=== PATIENT | female | born 1985 | race Caucasian/White ===

== ENCOUNTER 2017-02-26 13:03 | Inpatient (IN) | payer BC ==
[~2017-02-26 13:03] MED LIST: Bupivacaine/Epinephrine 0.25% 30 ML VIAL ONE
--- NOTE | 2017-02-26 13:32 | PDOC.LDHP ---
Labor and Delivery H&P Chief complaint: contractions HPI: 31 y/o at 38w5d, patient of Dr. Alcala, presents with ctx. Denies VB, LOF, or decreased FM. ROS neg for HEENT, CV, pulm, GI, , neuro, psych, skin, musculoskeletal, or constitutional symptoms other than mentioned above. OB History Details: 1 prior term in 2014 Current complications: none Past Medical History: None Current medications: pre- vitamins Previous surgical history: none Allergies/Adverse Reactions: Allergies Allergy/AdvReac Type Severity Reaction Status Date / Time ibuprofen [From Advil] Allergy Mild Hives Verified 02/26/17 13:38 Social history: none - Physical Exam Vital signs reviewed and normal: yes General: NAD, resting Lungs: nonlabored breathing Abdomen: gravid Extremeties: no edema FHT: category 1 (140s, mod variability, + accels, no decels) - OB Labs Blood type: A RH: positive Antibody Screen: negative HIV: negative RPR: negative HEPSAg: negative 1 hour GCT: negative GBS: negative Rubella: immune - Assessment L&D Assessment: term patient in labor - Plan Plan: admit to L&D, labor augmentation if indicated, informed consent obtained, anesthesia consult for pain management (if desired)
[2017-02-26 13:39] VITALS: BMI 21.9
[2017-02-26] MEDS ORDERED: Acetaminophen 500 MG TAB PO PRN (13:51)
[2017-02-26] MEDS ORDERED: Diphenoxylate HCl/Atropine Tablet PO PRN ×2 (13:51)
[2017-02-26] MEDS ORDERED: Misoprostol 200 MCG TAB PR PRN (13:51)
[2017-02-26] MEDS ORDERED: HYDROcodone/Acetaminophen 5/325 mg Tablet PO PRN ×5 (13:51→18:35)
[2017-02-26] MEDS ORDERED: Ondansetron HCl/PF 4 MG/2 ML Vial IVP PRN ×3 (13:51→17:24)
[2017-02-26] MEDS ORDERED: Promethazine HCl 25 MG/ML VIAL IM PRN ×4 (13:51→18:35)
[2017-02-26] MEDS ORDERED: LR / Pitocin 40 units/1000 ml 1,000 ML IV PRN (13:51)
[2017-02-26] MEDS ORDERED: Lidocaine 1% (PF) 30 ML VIAL SC PRN (13:51)
[2017-02-26] MEDS ORDERED: Carboprost 250 MCG/ML AMP IM PRN (13:51)
[2017-02-26] MEDS ORDERED: LR 500 ML/Oxytocin 10 units 500 ML IV SCH (14:00)
[2017-02-26] MEDS: Lactated Ringer's 1,000 ML IV SCH ×2 (14:32→16:12)
[2017-02-26] MEDS ORDERED: Fentanyl 4 mcg/Marc 0.1% Cadd 100 ML ONE (14:54)
[2017-02-26 15:29] LABS: Hematocrit 34.8 % (36.0-47.0); Mean Platelet Volume 9.2 fL (7.4-10.4); Red Blood Cell (RBC) Count 3.58 mill/uL (4.20-5.40); White Blood Cell (WBC) Count 8.7 thou/uL (4.8-10.8)
[2017-02-26] MEDS ORDERED: Naloxone HCl 0.4 mg/ml Vial IVP PRN ×2 (16:03)
[2017-02-26] MEDS ORDERED: diphenhydrAMINE 50 MG/ML VIAL IVP PRN (16:03)
[2017-02-26] MEDS ORDERED: ePHEDrine/0.9% NaCl/PF SYRINGE 50 mg/10 ml SLOW IVP PRN (16:03)
[2017-02-26] MEDS ORDERED: Acetaminophen 325 MG TAB PO PRN (16:03)
[2017-02-26] MEDS ORDERED: Lactated Ringer's 500 ML IV PRN (16:03)
[2017-02-26] MEDS ORDERED: Eucerin (Mineral Oil/Petrolatum,White) 30 gm Jar TOP PRN (16:03)
[2017-02-26] MEDS ORDERED: Fentanyl 4mcg/Marcaine 0.1% Cassette 100 ML EPIDURAL SCH (16:15)
[2017-02-26] MEDS ORDERED: Communication Order-Pharmacy FS SCH (16:15)
[2017-02-26] MEDS ORDERED: Benzocaine/Menthol 20-0.5% 60 ML CAN TOP PRN (17:24)
[2017-02-26] MEDS ORDERED: Lanolin Ointment 7 GM TUBE TOP PRN (17:24)
[2017-02-26] MEDS ORDERED: Milk Of Magnesia 30 ML UDCUP PO PRN (17:24)
[2017-02-26] MEDS ORDERED: Preparation H Ointment 28 GM TUBE PR PRN (17:24)
[2017-02-26] MEDS ORDERED: Zolpidem Tartrate 5 MG TAB PO PRN ×2 (17:24→18:36)
[2017-02-26] MEDS ORDERED: Bisacodyl 10 MG SUPP PR PRN (17:24)
[2017-02-26] MEDS ORDERED: diphenhydrAMINE 25 MG CAP PO PRN (17:24)
--- NOTE | 2017-02-26 17:29 | PDOC.LDPN ---
Labor & Delivery Progress Note - Subjective Subjective: comfortable - Objective Vital signs reviewed and normal: yes General: NAD, resting Uterine fundus: non tender Dilation: 8 Effacement: 100% Station: 1+ FHT: category 1 Antoine contractions every: 3 AROM: clear fluid Plan: continue plan of care -: Anticipate
--- NOTE | 2017-02-26 17:31 | PDOC.OPDEL ---
OB Operative/Delivery Note Delivery Dr/Surgeon: Maribel Willard MD Pre-Delivery Diagnosis: active labor Procedure/Post Delivery Dx: spontaneous vaginal delivery Weeks gestation: 38 Anesthesia: epidural - Findings A Sex: female ("Brenley") - Additional Findings/Plan Placenta delivered: spontaneous Repaired Obstetrical Laceration: none Estimated blood loss: 250 Compilations/Other Findings: Extra digit on hands bilaterally Post delivery plan: routine recovery
[2017-02-26] MEDS ORDERED: LR / Pitocin 40 units/1000 ml 1,000 ML IV SCH (18:30)
[2017-02-26] MEDS ORDERED: Misoprostol 200 MCG TAB VAG SCH (18:30)
[2017-02-26] MEDS ORDERED: Measles/Mumps/Rubella 10 MCG/0.5 ML VIAL SC ONE (21:00)
[2017-02-26] MEDS ORDERED: Varicella virus, LIVE 0.5 ML VIAL SC ONE (21:00)
[2017-02-26] MEDS ORDERED: Adacel (T-DAP) 0.5 ML VIAL IM ONE (21:00)
[2017-02-26] MEDS: HYDROcodone/Acetaminophen 5/325 mg Tablet PO PRN (23:28)
[2017-02-26] MEDS: Docusate (Surfak) 240 MG CAP PO SCH (23:30)
[2017-02-27] MEDS: HYDROcodone/Acetaminophen 5/325 mg Tablet PO PRN ×2 (06:22→11:35)
[2017-02-27] MEDS: Ferrous Sulfate 325 MG TAB PO SCH ×2 (08:38→18:05)
[2017-02-27] MEDS ORDERED: Prenatal Vitamin 1 TAB PO SCH (09:00)
[2017-02-27] MEDS: Docusate (Surfak) 240 MG CAP PO SCH (09:49)
--- NOTE | 2017-02-27 17:09 | PDOC.PP ---
Post Progress Note Post Day #: 1 Subjective: doing well, desires DC home today PO intake tolerated: yes Flatus: yes Ambulation: yes Vital Signs (12 hours) Temp Pulse Resp BP 02/27/17 16:00 97.7 F 58 L 20 02/27/17 12:00 97.7 F 58 L 20 02/27/17 08:00 97.7 F 58 L 20 02/27/17 07:33 97.7 F 58 L 20 111/71 Weight Weight 140 lb - Physical Examination General: NAD Respiratory: non-labored breathing Abdominal: no distention Fundus firm & at: below umb Extremities: negative homans (B) Skin: no rash Psychiatric: A&Ox3, normal affect Result Diagrams: 02/26/17 14:31 Additional Labs: Post Labs Hep Bs Antigen Non-Reactive S/CO (NonReactive) 02/26/17 14:30 (1) Vaginal delivery Code(s): O80 - ENCOUNTER FOR FULL-TERM UNCOMPLICATED DELIVERY Status: Acute - Assessment/Plan PPD 1, doing well, DC home when baby DC.
[2017-02-27 17:18] VITALS: BP 111/69; TEMP 98
== END 2017-02-27 19:25 | disposition home or self-care (01) | DRG 775 ==
LOC: L&D/OP 13:03 → L&D 14:26 → 3SE 20:25
PROVIDERS: ADMIT Obstetrics & Gynecology; ATTEND Obstetrics & Gynecology
PROC: 10E0XZZ Delivery of Products of Conception, External Approach (ICD-10-PCS; principal; 2017-02-26)
DX: O80 Encounter for full-term uncomplicated delivery (principal); Z37.0 Single live birth; Z3A.38 38 weeks gestation of pregnancy
CPT/HCPCS: 36415; 85027; 86780; 87340; J2001; J7120

== ENCOUNTER 2018-06-25 08:39 | Outpatient (CLI) | payer OTHER ==
--- NOTE | 2018-06-25 09:59 | CT ---
Exam: Abdomen and pelvic CT scan with IV contrast: HISTORY: Lower abdominal pain FINDINGS: The lung bases are clear. The visualized liver, gallbladder, pancreas, spleen, and adrenal glands are unremarkable. No renal calculus or obstruction. No solid or cystic renal mass. No evidence for la rge or small bowel obstruction. No CT evidence for acute appendicitis. Several areas of abnormal low- attenuation change within the uterus possibly intrauterine fibroids. In several of the opacified small bowel loops of there are some circumscribed serpentiginous shaped s omewhat linear opacities which have a nonspecific appearance. I think this should be very unlikely to represent a neoplastic process. They could represent swallowed foreign bodies IMPRESSION: Altered attenuation within the uterus, nonspecific possibly uterine fibroids, consider follow-up pelv ic ultrasound. Some linear circumscribed abnormal filling defects within at least 2 loops of unopacified small bowel , possibilities include that of foreign bodies. Consideration for follow-up capsule enterography is s uggested with GI consultation.
[2018-06-25] MEDS ORDERED: Iopamidol 370 76% 100 ML VIAL ONE (17:18)
== END 2018-06-25 08:40 | disposition home or self-care (01) ==
LOC: CT 08:39
PROVIDERS: ATTEND Physician Assistant
DX: R10.13 Epigastric pain (principal); R10.30 Lower abdominal pain, unspecified; R93.89 Abnormal findings on diagnostic imaging of other specified body structures
CPT/HCPCS: 74177; Q9967

== ENCOUNTER 2018-07-10 13:02 | Outpatient (CLI) | payer OTHER ==
--- NOTE | 2018-07-10 16:15 | MRI ---
MRI Abdomen W WO Con History: [R 93.[address] R10.13 epigastric pain. K59 Constipation] Comparison: CT abdomen and pelvis with contrast June 25, 2018 Findings: No abnormal filling defect is seen within the lumen of the proximal small bowel as the prio r CT examination had seen. No hydronephrosis. Visualized portion of liver parenchyma is normal. No abnormal small bowel or large bowel enhancement. No fistula. No abnormal mucosal thickening. No submucosal edema. Gallbladder is normal. No intrahepa tic or extrahepatic biliary dilatation. No evidence for sludge. The aortoiliac contour is normal. Kidneys unremarkable. Spleen is normal. Normal proximal small bowel rotation. Pancreas is normal. Adrenal glands are unremarkable. Paraspinal musculature is symmetric and normal. Impression: Normal MRI enterography.
== END 2018-07-10 13:03 | disposition home or self-care (01) ==
LOC: MRI 13:02
PROVIDERS: ATTEND Internal Medicine Gastroenterology
DX: K59.00 Constipation, unspecified (principal); R93.3 Abnormal findings on diagnostic imaging of other parts of digestive tract; R10.13 Epigastric pain
CPT/HCPCS: 74183; J1610